=== PATIENT | male | born 1955 | race Caucasian/White ===

== ENCOUNTER → 2017-11-12 | Outpatient (CLI) | payer OTHER ==
[~2017-11-12] MED LIST: ASCA500 PO; ASPI-113 PO; CELE100C PO; CLC100 PO; HYDR-5688 PO; METO50TA16 PO; MULT-506 PO; ONDA4TAB7 SL; POLY335025 PO; TAMS0.4C59 PO; TRAM-10 PO
[2017-11-12 13:18] LABS: BLOOD UREA NITROGEN 18 mg/dl (7-18); CALCIUM 9.3 mg/dl (8.5-10.1); CARBON DIOXIDE 25 mmol/L (21-32); CREATININE 1.05 mg/dl (0.60-1.40); GLUCOSE 96 mg/dl (70-99); SODIUM 140 mmol/L (136-145)
== END | disposition home or self-care (01) ==
LOC: C.LABPBG 08:40
PROVIDERS: ATTEND Family Medicine
DX: I10 Essential (primary) hypertension (principal)

== ENCOUNTER 2025-09-08 05:44 | Inpatient (IN) ==
--- NOTE | 2025-08-15 10:40 | PAT Medication Instructions ---
Medication Instructions Date of Service August 15, 2025 Home Medications Medication Instructions Recorded acetaminophen 500 mg tablet 500 mg PO Q6H PRN pain #30 tabs 04/05/19 hydrocortisone 2.5 % topical cream 1 applic [place] DAILY PRN hemorrhoids 04/02/23 with perineal applicator #30 grams metoprolol tartrate 50 mg tablet 50 mg PO HS #90 tabs 05/12/23 ondansetron 8 mg disintegrating 8 mg PO Q8H PRN nausea and 06/16/24 tablet vomiting #90 tabs levofloxacin 500 mg tablet 500 mg PO DAILY PRN PROSTATE 10/22/24 ISSUES PER PT #90 tabs armodafinil 150 mg tablet (Nuvigil) 150 mg PO QAM PRN NEEDED PER PT 07/26/25 #30 tabs tramadol 50 mg tablet 50 mg PO BID PRN pain #60 tabs 07/26/25 acetaminophen 500 mg tablet 500 mg PO Q6H PRN pain cholecalciferol (vitamin D3) 125 mcg (5,000 unit) tablet (Vitamin D3) 125 mcg PO DAILY magnesium oxide 500 mg PO HS hydrocortisone 2.5 % topical cream with perineal applicator 1 applic [place] DAILY PRN hemorrhoids metoprolol tartrate 50 mg tablet 50 mg PO HS ondansetron 8 mg disintegrating tablet 8 mg PO Q8H PRN nausea and vomiting amlodipine 5 mg tablet 5 mg PO QAM amoxicillin 500 mg capsule 2,000 mg PO UD PRN dental care ascorbic acid (vitamin C) 500 mg capsule 2,000 mg PO DAILY aspirin 325 mg tablet 325 mg PO QAM cyanocobalamin (vitamin B-12) 1,000 mcg sublingual tablet 5,000 mcg sublingual DAILY fenofibrate 160 mg tablet 160 mg PO Q2D finasteride 5 mg tablet 5 mg PO QAM multivitamin 1 tab PO DAILY tamsulosin 0.4 mg capsule 0.8 mg PO QPM levofloxacin 500 mg tablet 500 mg PO DAILY PRN PROSTATE ISSUES PER PT lisinopril 10 mg tablet See Rx Instructions PO UD armodafinil 150 mg tablet (Nuvigil) 150 mg PO QAM PRN NEEDED PER PT tramadol 50 mg tablet 50 mg PO BID PRN pain docusate sodium 100 mg capsule 100 mg PO QPM PRN Constipation duloxetine 30 mg capsule,delayed release 40 mg PO QAM rosuvastatin 5 mg tablet 5 mg PO QAM Continue as directed amoxicillin 500 mg capsule 2,000 mg PO UD PRN dental care (if needed) levofloxacin 500 mg tablet 500 mg PO DAILY PRN PROSTATE ISSUES PER PT (if needed) ASK your prescriber and surgeon aspirin 325 mg tablet 325 mg PO QAM Do not take day before surgery or morning of surgery fenofibrate 160 mg tablet 160 mg PO Q2D DO NOT take the morning of surgery cholecalciferol (vitamin D3) 125 mcg (5,000 unit) tablet (Vitamin D3) 125 mcg PO DAILY ascorbic acid (vitamin C) 500 mg capsule 2,000 mg PO DAILY cyanocobalamin (vitamin B-12) 1,000 mcg sublingual tablet 5,000 mcg sublingual DAILY multivitamin 1 tab PO DAILY lisinopril 10 mg tablet See Rx Instructions PO UD armodafinil 150 mg tablet (Nuvigil) 150 mg PO QAM PRN NEEDED PER PT hydrocortisone 2.5 % topical cream with perineal applicator 1 applic [place] DAILY PRN hemorrhoids Take morning of surgery With a small sip of water, OTHERWISE NOTHING TO EAT OR DRINK AFTER MIDNIGHT: acetaminophen 500 mg tablet 500 mg PO Q6H PRN pain (if needed) ondansetron 8 mg disintegrating tablet 8 mg PO Q8H PRN nausea and vomiting (if needed) amlodipine 5 mg tablet 5 mg PO QAM finasteride 5 mg tablet 5 mg PO QAM tramadol 50 mg tablet 50 mg PO BID PRN pain (if needed) duloxetine 30 mg capsule,delayed release 40 mg PO QAM rosuvastatin 5 mg tablet 5 mg PO QAM Take evening before surgery acetaminophen 500 mg tablet 500 mg PO Q6H PRN pain (if needed) magnesium oxide 500 mg PO HS metoprolol tartrate 50 mg tablet 50 mg PO HS hydrocortisone 2.5 % topical cream with perineal applicator 1 applic [place] DAILY PRN hemorrhoids (if needed) ondansetron 8 mg disintegrating tablet 8 mg PO Q8H PRN nausea and vomiting (if needed) tamsulosin 0.4 mg capsule 0.8 mg PO QPM tramadol 50 mg tablet 50 mg PO BID PRN pain (if needed) docusate sodium 100 mg capsule 100 mg PO QPM PRN Constipation (if needed) Other Notes If you have any questions please call us at [phone] or [phone] or [phone] or [phone]
--- NOTE | 2025-08-19 10:14 | Anesthesiology Consultation ---
Date of Service August 19, 2025 Assessment & Plan (1) Encounter for pre-operative examination: - Check BSG DOS - Infectious disease screening: Per assessment on 08/19/25- No known recent infectious disease contacts or current infectious disease symptoms. - [facility] visit 05/02/25: "The patient is stable from a cardiovascular standpoint. He demonstrates excellent control of his blood pressure at home. Unfortunately, he is not tolerant with statin therapy. He was commended on his active lifestyle. We will continue with yearly visits. Highly complex medical issues are managed as discussed today. Plan 1. Continue current medications. 2. Continue active lifestyle. 3. Continue home blood pressure monitoring. 4. Lipid panel with primary care team. 5. Follow-up in 1 year (patient request)." - Ophthalmology visit 08/03/25: "Ischemic Optic Neuropathy OS. 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 No treatment can improve vision. No systemic risk factors for other inflammatory or infectious etiology. Recommend MRI Brain and sleep apnea evaluation (via PCP) to rule out rico and other risk factors. Gradual vision loss over last 3-4 w eeks. Patient had a CTA that showed 90% blockage in left carotid artery. He has an appointment with a vascular doctor early next week. Notes some shoulder weakness, had [facility] labs, which were negative.. Ischemic Optic neuropathy OD. Nonarteritic.. Resolved branch Retinal Artery Occlusion OD. No emboli on exam. Given the location (cilioretinal artery) coming off the optic nerve, more likely related to optic nerve edema/infarct (as opposed to embolic disease).. NS Cataract OU. Cataract not visually significant.. Systane 1gtt prn OU > Brain MRI done 08/14/25. - Cardiovascular surgeon visit 08/08/25: "Asked to evaluate this 69-year-old gentleman with an incidentally discovered left internal carotid artery stenosis. 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 Over the last month or so he has had progressive vision loss in the left eye. A CT arteriogram of the neck demonstrated a high-grade (greater than 80%) calcified stenosis of the left internal carotid artery at its origin and on this basis he is being referred for further evaluation. He really does not describe any intermittent loss of vision, it has really been very progressive and chronic. He has no history of a prior stroke or transient ischemic attack.." "He has a high-grade asymptomatic left internal carotid artery stenosis and is a suitable candidate for prophylactic carotid intervention. We discussed the options including medical management, carotid stenting, as well as carotid endarterectomy. He and his in particular would much rather pursue carotid endarterectomy. With this in mind, I will set him up for left carotid endarterectomy sometime in the next few weeks.." - Acceptable risk for given surgery pending evaluation DOS. Chart Review Chart Review: Patient seen in Pre Admission Testing Teaching & Discussion Pre-Anesthesia Teaching/Discussion Notes: Instructed NPO after midnight before surgery,except medications with 15 cc of water. Medication instructions provided according to the PAT guidelines. History Surgery Operation Date: 09/08/25 07:30 Proposed Procedures p Left Carotid Endarterectomy - Toby Maurice MD Height/Weight Height: 5 ft 8 in Weight: 78.3 kg Allergies Allergy/AdvReac Type Severity Reaction Status Date / Time No Known Allergies Allergy Verified 08/08/25 09:35 Medications Home Medications Medication Instructions Recorded Confirmed Last Taken acetaminophen 500 mg tablet 500 mg PO Q6H PRN pain #30 tabs 04/05/19 08/12/25 Unknown cholecalciferol (vitamin D3) 125 125 mcg PO DAILY 07/10/22 08/12/25 07/18/24 05:00 mcg (5,000 unit) tablet (Vitamin D3) magnesium oxide 500 mg PO HS 07/10/22 08/12/25 07/18/24 19:30 hydrocortisone 2.5 % topical cream 1 applic IN DAILY PRN hemorrhoids 04/02/23 08/12/25 Unknown with perineal applicator #30 grams metoprolol tartrate 50 mg tablet 50 mg PO HS #90 tabs 05/12/23 08/12/25 07/18/24 19:30 ondansetron 8 mg disintegrating 8 mg PO Q8H PRN nausea and 06/16/24 08/12/25 Unknown tablet vomiting #90 tabs amlodipine 5 mg tablet 5 mg PO QAM 07/05/24 08/12/25 07/19/24 04:30 amoxicillin 500 mg capsule 2,000 mg PO UD PRN dental care 07/05/24 08/12/25 Unknown ascorbic acid (vitamin C) 500 mg 2,000 mg PO DAILY 07/05/24 08/12/25 07/18/24 05:00 capsule aspirin 325 mg tablet 325 mg PO QAM 07/05/24 08/12/25 07/11/24 05:00 cyanocobalamin (vitamin B-12) 5,000 mcg sublingual DAILY 07/05/24 08/12/25 07/18/24 05:00 1,000 mcg sublingual tablet fenofibrate 160 mg tablet 160 mg PO Q2D 07/05/24 08/12/25 07/17/24 05:00 finasteride 5 mg tablet 5 mg PO QAM 07/05/24 08/12/25 07/18/24 05:00 multivitamin 1 tab PO DAILY 07/05/24 08/12/25 07/18/24 05:00 tamsulosin 0.4 mg capsule 0.8 mg PO QPM 07/05/24 08/12/25 07/18/24 19:30 levofloxacin 500 mg tablet 500 mg PO DAILY PRN PROSTATE 10/22/24 08/12/25 Unknown ISSUES PER PT #90 tabs lisinopril 10 mg tablet See Rx Instructions PO UD 01/24/25 08/12/25 Unknown armodafinil 150 mg tablet (Nuvigil) 150 mg PO QAM PRN NEEDED PER PT 07/26/25 08/12/25 Unknown #30 tabs tramadol 50 mg tablet 50 mg PO BID PRN pain #60 tabs 07/26/25 08/12/25 Unknown docusate sodium 100 mg capsule 100 mg PO QPM PRN Constipation 08/08/25 08/12/25 Unknown duloxetine 30 mg capsule,delayed 40 mg PO QAM 08/08/25 08/12/25 Unknown release rosuvastatin 5 mg tablet 5 mg PO QAM 08/12/25 08/12/25 Unknown Past Medical History Medical History Aortic valve sclerosis Follows with [facility] cardio BPH (benign prostatic hyperplasia) Cervical radiculopathy C6-C7 (chronic) RUE radiculopathy CLL (chronic lymphocytic leukemia) Stable currently, monitoring/no treatment Degenerative joint disease Depression Elevated PSA Hearing loss History of anemia Hx of renal calculi Hyperlipidemia Hypertension Ischemic optic neuropathy Legally blind right eye Mitral regurgitation Optic neuritis Left eye, Following with a specialist from [place] (comes to [place])- seen 07/2025 Osteoarthritis Prediabetes No meds PTSD (post-traumatic stress disorder) Stenosis of left internal carotid artery Neck CTA 08/01/25: Severe (90%) stenosis of the proximal left internal carotid artery due to calcified plaque. No additional stenoses within the major vessels of the neck. Exercise / Class Metabolic Activity II 4-5 Yardwork/Stairs/Walk up hill (one FS: No CP, no SOB) Past Family History Family History Father Diabetes Alcohol abuse Myocardial infarction, Onset Age: 75 Hypertension Mother Hypertension Other No family history of adverse response to anesthesia Denies family history of Ovarian cancer Prostate cancer Breast cancer Colorectal cancer Past Surgical History Surgical History H/O lithotripsy H/O right inguinal hernia repair (07/19/24) Robotic assisted Laparoscopic Right Inguinal Hernia Repair with Mesh History of hip surgery x3, r/t right hip wound infection History of open reduction and internal fixation (ORIF) procedure Right wrist, hardware removed (pins only) S/P hernia repair x2 (As infant, ~1984) Status post left hip replacement Status post right hip replacement Status post surgery Left wrist, radial artery repair Past Anesthesia History No Hx of Anesthesia Complications and No Family Hx of Anesthesia Complications History of PONV No Hx of PONV and No Hx of Motion Sickness Social History Smoking Status: Never smoker Do You Dip or Chew Tobacco: No Hx Alcohol Use: No (None in a few years) Hx Substance Use: No substance use type: does not use Review of Systems Patient denies chest pain, shortness of breath, dyspnea on exertion, fever, chills, cough, wheezing, palpitations. Physical Exam Vital Signs BP 135/63 P 56 TEMP 98.3 SP02 96%RA RESP 16 Physical Full cervical extension range of motion. Full TMJ range of motion. TMD > 3.5 finger breaths Mallampati Score II Dentition: intact Lungs: clear throughout to auscultation Cardiac: regular rate and rhythm, no murmurs noted Spine: normal Lab Results Anesthesia Preop Results Results Anesthesia Widget: WBC 9.84 K/ul (4.8-10.8) 08/19/25 Hgb 12.5 g/dL (14.0-18.0) L 11/21/25 Hct 39.2 % (42.0-52.0) L 08/19/25 Plt 263 K/uL (130-400) 08/19/25 Na 137 mmol/L (136-145) 07/26/25 K 3.9 mmol/L (3.5-5.1) 07/26/25 Cl 102 mmol/L (98-107) 07/26/25 CO2 26 mmol/L (21-32) 07/26/25 BUN 22 mg/dl (6-23) 07/26/25 Creat 1.11 mg/dl (0.6-1.4) 07/26/25 Glucose Level 136 mg/dl (70-99(Fasting)) H 07/26/25 TSH 0.446 uIu/ml (0.300-4.500) 07/26/25 Blood Type B Negative 08/19/25 Antibody Screen NEGATIVE 08/19/25 Testing Electrocardiogram Date: 08/19/25 SB with PACs at 54bpm. "Otherwise normal ECG" Other Testing Head CT Date: 08/01/25 IMPRESSION: No acute intracranial abnormality. Head CTA Date: 08/01/25 IMPRESSION: 1. There is no evidence of hemorrhage or mass effect noting angiographic phase technique. 2. Unremarkable CT angiogram of the brain. Neck CTA Date: 08/01/25 Findings: Visualized portions of the lung apices are unremarkable. There is no cervical lymphadenopathy. There are no cervical spine fractures. There is extensive calcified atherosclerotic plaque within the proximal left internal carotid artery which results in severe short segment stenosis. The patent portion of the vessel measures 1 mm. The more distal left internal carotid artery measures 4.6 mm. There is moderate plaque within the right carotid bifurcation without stenosis. The vertebral arteries are patent. There is no aneurysm or dissection within the neck. CTA of the head will be reported separately. IMPRESSION: Severe (90%) stenosis of the proximal left internal carotid artery due to calcified plaque. No additional stenoses within the major vessels of the neck. Brain MRI Date: 08/14/25 IMPRESSION: 1. No acute intracranial findings. 2. No intracranial mass or pathologic enhancement. 3. Scattered white matter T2 hyperintense foci which favor small vessel disease. No convincing MR evidence for demyelinating disease within the brain parenchyma.
[2025-09-08 06:05] LABS: Hematocrit (blood only) 39.7 % (42.0-52.0); Hemoglobin 13.0 g/dL (14.0-18.0); Mean Corpuscular Hemoglobin 28.8 pg (25.0-34.0); Mean Corpuscular Volume 88.0 fL (80.0-100.0); Platelet Count 300 K/uL (130-400); RDW Standard Deviation 47.4 fL (36.4-46.3); Red Blood Count 4.51 M/uL (4.70-6.10); White Blood Count 9.74 K/ul (4.8-10.8)
[2025-09-08] MEDS ORDERED: PROPOFOL IV EMULSION 10 MG/ML 20 ML VIAL IV ONE (06:20)
[2025-09-08] MEDS ORDERED: LIDOCAINE 2% 2 ML VIAL/AMP(20MG/ML) INFIL ONE (06:20)
[2025-09-08] MEDS ORDERED: ROCURONIUM BROMIDE 10 MG/ML 5 ML VIAL IV ONE (06:20)
[2025-09-08] MEDS: SODIUM CHLORIDE 0.9% 1,000 ML IV SCH (06:24)
[2025-09-08 06:25] LABS: Anion Gap 7.0 (3-11); Blood Urea Nitrogen 19.0 mg/dl (6-23); Calcium 9.3 mg/dl (8.6-10.3); Carbon Dioxide 28.0 mmol/L (21-32); Chloride 105.0 mmol/L (98-107); Creatinine Clr Calc Pharmacy 68.6 ml/min; Glucose 101.0 mg/dl (70-99(Fasting)); Potassium 4.5 mmol/L (3.5-5.1); Sodium 140.0 mmol/L (136-145)
[2025-09-08] MEDS ORDERED: PHENYLEPHRINE HCL 10 MG/ML VIAL ONE (06:25)
[2025-09-08] MEDS: LR 15ML/HR IV SCH (06:25)
[2025-09-08] MEDS ORDERED: HEPARIN SOD (PORCINE) 1000 UNIT/ML ONE (06:32)
[2025-09-08] MEDS ORDERED: LABETALOL HCL IV 5 MG/ML 20ML IV ONE (06:34)
[2025-09-08] MEDS ORDERED: NITROGLYCERIN/D5W 100 MCG/ML BTL ONE (06:37)
[2025-09-08] MEDS ORDERED: PROMETHAZINE HCL 6.25 MG in SODIUM CHLORIDE 0.9% 50 ML IV PRN (06:56)
[2025-09-08] MEDS ORDERED: ONDANSETRON INJ 2 MG/ML 2 ML VIAL IV PRN (06:56)
[2025-09-08] MEDS ORDERED: ATROPINE SULFATE 0.1 MG/ML 10ML SYR IV PRN (06:56)
[2025-09-08] MEDS ORDERED: FLUMAZENIL 0.1 MG/1 ML 10 ML VIAL IV PRN (06:56)
[2025-09-08] MEDS ORDERED: NALOXONE HCL 0.4 MG/1 ML VIAL/CARP IV PRN (06:56)
--- NOTE | 2025-09-08 07:40 | History & Physical Report ---
Date of Service September 08, 2025 Assessment & Plan (1) Stenosis of left internal carotid artery: Plan: Plan for left carotid endarterectomy today. Risks/goals/alternatives already discussed with patient who reaffirms his understanding of the seriousness of the situation and chooses to proceed. All questions answered. History of Present Illness Primary Care Provider: Azalea Bridges, DO Please see my note from 08/08/25. No significant change in his history from that time. Incidentally discovered high grade calcified left internal carotid artery stenosis. Remains asymptomatic. No interval history of fever, cough, GI symptoms or neurologic issues. Plan for left carotid endarterectomy today. Allergies Allergy/AdvReac Type Severity Reaction Status Date / Time No Known Allergies Allergy Verified 09/08/25 05:52 Home Medications Medication Instructions Recorded Confirmed Type acetaminophen 500 mg tablet 500 mg PO Q6H PRN pain #30 tabs 04/05/19 09/08/25 Rx cholecalciferol (vitamin D3) 125 125 mcg PO DAILY 07/10/22 09/08/25 History mcg (5,000 unit) tablet (Vitamin D3) magnesium oxide 500 mg PO HS 07/10/22 09/08/25 History hydrocortisone 2.5 % topical cream 1 applic [place] DAILY PRN hemorrhoids 04/02/23 09/08/25 Rx with perineal applicator #30 grams metoprolol tartrate 50 mg tablet 50 mg PO HS #90 tabs 05/12/23 09/08/25 Rx ondansetron 8 mg disintegrating 8 mg PO Q8H PRN nausea and 06/16/24 09/08/25 Rx tablet vomiting #90 tabs amlodipine 5 mg tablet 5 mg PO QAM 07/05/24 09/08/25 History amoxicillin 500 mg capsule 2,000 mg PO UD PRN dental care 07/05/24 09/08/25 History ascorbic acid (vitamin C) 500 mg 2,000 mg PO DAILY 07/05/24 09/08/25 History capsule aspirin 325 mg tablet 325 mg PO QAM 07/05/24 09/08/25 History cyanocobalamin (vitamin B-12) 5,000 mcg sublingual DAILY 07/05/24 09/08/25 History 1,000 mcg sublingual tablet fenofibrate 160 mg tablet 160 mg PO Q2D 07/05/24 09/08/25 History finasteride 5 mg tablet 5 mg PO QAM 07/05/24 09/08/25 History multivitamin 1 tab PO DAILY 07/05/24 09/08/25 History tamsulosin 0.4 mg capsule 0.8 mg PO QPM 07/05/24 09/08/25 History levofloxacin 500 mg tablet 500 mg PO DAILY PRN PROSTATE 10/22/24 09/08/25 Rx ISSUES PER PT #90 tabs lisinopril 10 mg tablet See Rx Instructions PO UD 01/24/25 09/08/25 History armodafinil 150 mg tablet (Nuvigil) 150 mg PO QAM PRN NEEDED PER PT 07/26/25 09/08/25 Rx #30 tabs tramadol 50 mg tablet 50 mg PO BID PRN pain #60 tabs 07/26/25 09/08/25 Rx docusate sodium 100 mg capsule 100 mg PO QPM PRN Constipation 08/08/25 09/08/25 History duloxetine 30 mg capsule,delayed 40 mg PO QAM 08/08/25 09/08/25 History release rosuvastatin 10 mg tablet 10 mg PO QAM #90 tabs 08/29/25 09/08/25 Rx Past Med/Surg History Problem List Anemia PTSD (post-traumatic stress disorder) Osteoarthritis, chronic Dyslipidemia Hx Depression Aortic valve sclerosis Follows with [facility] BPH (benign prostatic hyperplasia) HTN (hypertension) Prediabetes CLL (chronic lymphocytic leukemia) Hearing loss Degenerative joint disease (DJD) of hip Erectile dysfunction Medical History Encounter for pre-operative examination Stenosis of left internal carotid artery Neck CTA 08/01/25: Severe (90%) stenosis of the proximal left internal carotid artery due to calcified plaque. No additional stenoses within the major vessels of the neck. Mitral regurgitation Optic neuritis Left eye, Following with a specialist from [place] (comes to [place])- seen 07/2025 Hearing loss Degenerative joint disease Depression PTSD (post-traumatic stress disorder) Prediabetes No meds Osteoarthritis Hypertension Hyperlipidemia BPH (benign prostatic hyperplasia) Cervical radiculopathy C6-C7 (chronic) RUE radiculopathy CLL (chronic lymphocytic leukemia) Stable currently, monitoring/no treatment Aortic valve sclerosis Follows with [facility] History of anemia Elevated PSA Ischemic optic neuropathy Legally blind right eye Hx of renal calculi Surgical History H/O right inguinal hernia repair (07/19/24) Robotic assisted Laparoscopic Right Inguinal Hernia Repair with Mesh History of open reduction and internal fixation (ORIF) procedure Right wrist, hardware removed (pins only) History of hip surgery x3, r/t right hip wound infection Status post surgery Left wrist, radial artery repair Status post left hip replacement S/P hernia repair x2 (As infant, ~1984) H/O lithotripsy Status post right hip replacement Family History Father Diabetes Alcohol abuse Myocardial infarction, Onset Age: 75 Hypertension Mother Hypertension Other No family history of adverse response to anesthesia Denies family history of Ovarian cancer Prostate cancer Breast cancer Colorectal cancer Social History Smoking Status: Never smoker Second Hand Exposure: Yes (hx growing up); Do You Dip or Chew Tobacco: No; Tobacco Cessation Education Requested by Patient: No Hx Alcohol Use: No (None in a few years) Hx Substance Use: No Preferred Language: Gu[place]an Communication Ability: Effective Visual Impairment: No Limitations Hearing Ability: Hard of Hearing Wire Inspector Required: No Beliefs That Will Affect Care: None marital status: Current Living Situation: Spouse current occupational status: employed current occupation: [employer] Other Information That Helps Us Care for You: No Feels Safe at Home: Yes Safety Concerns: Feels Safe At This Time Childhood Exposure to Second-Hand Smoke: No Diet: regular Diet Comment: regular caffeine: Yes during the past year weight has: remained stable Dental Care, Regularly: Yes Physical Activity Frequency: Daily Seatbelt Use: always Sunscreen Use: Yes Assistive Devices: Glasses Assistive Devices Comment: reading glasses prn Physical Exam Physical Exam: Neck soft and supple. No neurologic deficits. Lungs clear Heart regular rate and rhythm. Results & Data Vital Signs (Past 12 Hours) Vital Signs Temp Pulse Resp BP Pulse Ox O2 Del Method 09/08/25 06:13 36.8 C 60 18 150/70 H 96 Room Air Code Status & VTE Plan VTE Prophylaxis Plan VTE Prophylaxis will be ordered: Yes PG Care Time/CCT Total # of Minutes Spent Total Time Spent with Patient: Total time spent is greater than 50% in coordination of care (as documented) at patient's floor/unit and/or counseling patient: Coding [place] [address] INT INP/OBS CARE 2/55MIN Patient Type Established Medical Decision Making Low Complexity Diagnoses Stenosis of left internal carotid artery I65.22
[2025-09-08] MEDS ORDERED: MIDAZOLAM HCL 1 MG/ML 2ML VIAL ONE (07:48)
[2025-09-08] MEDS ORDERED: ETOMIDATE 2 MG/ML 20 ML VIAL IV ONE (08:06)
[2025-09-08] MEDS ORDERED: ONDANSETRON INJ 2 MG/ML 2 ML VIAL ONE (08:41)
[2025-09-08] MEDS ORDERED: DEXAMETHASONE SOD INJ 4 MG/ML VIAL ONE (08:41)
[2025-09-08] MEDS ORDERED: VASOPRESSIN 20 UNIT/ML VIAL ONE (09:16)
[2025-09-08] MEDS ORDERED: ePHEDrine sulfate 50 MG/5 ML SYR ONE (09:30)
[2025-09-08] MEDS ORDERED: GLYCOPYRROLATE 0.2 MG/ML VIAL ONE (09:33)
[2025-09-08] MEDS ORDERED: SUGAMMADEX SODIUM 200 MG/2 ML VIAL IV ONE (10:14)
[2025-09-08] MEDS: GELATIN SPONGE SZ 100 ONE (10:32)
[2025-09-08] MEDS: ceFAZolin 330 MG/ML 1 GM VIAL ONE (10:32)
[2025-09-08] MEDS: BUPIVACAINE 0.25% PF 30 ML VIAL ONE (10:33)
[2025-09-08] MEDS: OPTIRAY 350 50ml Bottle INJ ONE (10:33)
[2025-09-08] MEDS: LIDOCAINE 1% LOCAL 20 ML VIAL ONE (10:33)
[2025-09-08] MEDS: THROMBIN FOR SOLN 20000 UNIT KIT ONE (10:33)
[2025-09-08] MEDS: HEPARIN (PORCINE) 1000 UNIT/ML 10 ML (CATH LAB USE ONLY) ONE (10:34)
--- NOTE | 2025-09-08 10:51 | Post Operative Brief Note ---
Immediate Post Op Note Date of Surgery September 08, 2025 Pre & Post Diagnosis Operation Date: 09/08/25 07:15 Pre-Op Diagnosis: Stenosis of Left Internal Carotid Artery Post-Op Diagnosis: Stenosis of Left Internal Carotid Artery I identified the patient and participated in the time-out.: Yes Procedure Operation Date: 09/08/25 07:15 Actual Procedures p Left Carotid Endarterectomy(Left) - Toby Maurice MD Surgeon Toby Maurice MD Bowling Alley Refinisher Neli Silva PA-C Estimated Blood Loss 50 Findings Consistent with Post-Op Diagnosis Specimens left carotid plaque Drains Alberto Catheter and Mikal-Monsivais Drain (15 fr) Anesthesia Type General Complications none Disposition Accompanied Patient To Recovery: Yes Disposition: Recovery Room
[2025-09-08 11:39] LABS: Hematocrit (blood only) 34.8 % (42.0-52.0); Hemoglobin 11.3 g/dL (14.0-18.0); Mean Corpuscular Hemoglobin 28.2 pg (25.0-34.0); Mean Corpuscular Volume 86.8 fL (80.0-100.0); Platelet Count 238 K/uL (130-400); RDW Standard Deviation 47.0 fL (36.4-46.3); Red Blood Count 4.01 M/uL (4.70-6.10); White Blood Count 10.62 K/ul (4.8-10.8)
--- NOTE | 2025-09-08 11:43 | Operative Report ---
PG Post Operative Report Pre & Post Diagnosis Operation Date: 09/08/25 07:15 Pre-Op Diagnosis: Stenosis of Left Internal Carotid Artery Post-Op Diagnosis: Stenosis of Left Internal Carotid Artery I identified the patient and participated in the time-out.: Yes Procedure Operation Date: 09/08/25 07:15 Actual Procedures p Left Carotid Endarterectomy(Left) - Toby Maurice MD Surgeon Toby Maurice MD Chip Bin Operator Neli Silva PA-C Estimated Blood Loss 50 Findings Consistent with Post-Op Diagnosis Specimens left carotid plaque Drains 15 round LUIS Anesthesia Type General Complications none Disposition Accompanied Patient To Recovery: Yes Disposition: Recovery Room Indications 69-year-old gentleman with high-grade asymptomatic left internal carotid artery stenosis. Brought to the operating room for repair. Risk goals and alternatives were discussed with the patient understood and gave consent to proceed. Description of Procedure A timeout was performed and the patient was identified and the procedure verified. General tracheal anesthesia was induced without incident. Preoperative antibiotics were administered within 1 hour of incision time. Neuromonitoring devices were placed and suitable baseline tracings were obtained. The left neck was prepped and draped in the usual sterile fashion. After infiltrating the skin with a 50-50 mixture of quarter percent Marcaine and 1% lidocaine, a 10 cm incision paralleling the anterior border of the sternocleidomastoid muscle was created. The platysma was divided with electrocautery. There was a large branch off of the internal jugular vein below the facial vein. This was divided and ligated with 2-0 silk ties. The vagus nerve was identified within the carotid sheath and protected. The patient was systemically anticoagulated with heparin to achieve a therapeutic activated clotting time. The facial vein was ligated and divided between 2-0 silk ties and mobilization of the common carotid artery was performed to an area without significant palpable disease. It was encircled with a Velasquez tourniquet. The external carotid and superior thyroid arteries were separately controlled. The internal carotid artery was dissected free to an area without significant palpable disease after identifying the hypoglossal nerve. The patient maintaining good oxygenation and hemodynamics, the internal/external and common carotid arteries were clamped. There was an additional posterior branch off the external carotid which was controlled with a clamp. The endarterectomy plane was identified and a bulky calcified plaque was removed from the origin of the internal carotid artery. The distal endpoint was feathered but in some points had to be trimmed and was tacked down with 7-0 Prolene. The proximal endpoint was obtained sharply. There was not a lot of disease into the external carotid artery so the plaque was trimmed flush with the origin here with a good endpoint. Copious irrigation of the lumen was performed and all remaining bits of debris were removed. A Dacron patch was fashioned to fit and sewn onto the carotid arteriotomy using running 6-0 Prolene. Prior to completion, backbleeding for bleeding and flushing maneuvers were performed and the patch closure was then completed tested secured and hemostatic. Flow was restored first to the external and into the internal carotid artery. The patient tolerated this well. Throughout the entire clamp time, neuromonitoring tracings were stable and so no shunt was used. Continuous-wave Doppler interrogation of all 3 vessels revealed appropriate waveforms. The patch was punctured with a 21-gauge butterfly and a completion angiogram was performed showing suitable endpoints and brisk flow up into the middle cerebral artery. The puncture site was repaired with 6-0 Prolene. The wound was made hemostatic. A 15 round Mikal-Monsivais drain was brought out through a separate stab incision and secured to the skin. The platysma was closed with interrupted Vicryl and the skin was closed with a running Monocryl suture. Dermabond was applied. A dry dressing was applied and the patient was awakened and extubated in the operating room moving all 4 extremities to command with the tongue in the midline. There were no immediate complications and the patient appeared to tolerate the procedure well. I attest to the content of the Intraoperative Record and any orders documented therein. Any exceptions are noted below.
--- NOTE | 2025-09-08 11:53 | Anesthesiology Progress Note ---
Date of Service September 08, 2025 Anesthesia Post Procedure Vital Signs Vital Signs: Temp Pulse Resp BP BP Pulse Ox O2 Del Method 09/08/25 11:50 36.6 C 71 15 93/41 L 93/52 L 94 Room Air 09/08/25 11:35 72 17 98/43 L 100/53 L 94 Room Air 09/08/25 11:25 81 16 109/59 L 102/32 L 99 Oxymask 09/08/25 11:15 84 15 108/65 105/59 L 100 Oxymask 09/08/25 11:08 36.1 C L 84 15 128/66 100 Oxymask 09/08/25 06:13 36.8 C 60 18 150/70 H 96 Room Air O2 Flow Rate 09/08/25 11:50 09/08/25 11:35 09/08/25 11:25 6 09/08/25 11:15 6 09/08/25 11:08 6 09/08/25 06:13 Transfer of Care Handoff Completed per policy Notes Mental Status: alert / awake / arousable Patient Amnestic to Procedure: Yes Nausea / Vomiting: adequately controlled Pain: adequately controlled Airway Patency, RR, SpO2: stable & adequate BP & HR: stable & adequate Hydration State: stable & adequate Anesthetic Complications: no major complications apparent
[2025-09-08 12:04] LABS: Anion Gap 7.0 (3-11); Blood Urea Nitrogen 18.0 mg/dl (6-23); Calcium 8.3 mg/dl (8.6-10.3); Carbon Dioxide 25.0 mmol/L (21-32); Chloride 109.0 mmol/L (98-107); Creatinine Clr Calc Pharmacy 80.1 ml/min; Glucose 139.0 mg/dl (70-99(Fasting)); Potassium 3.6 mmol/L (3.5-5.1); Sodium 141.0 mmol/L (136-145)
[2025-09-08 12:26] LABS: Immature Granulocytes # (auto) 0.03 K/uL (0.01-0.20); Immature Granulocytes % (auto) 0.3 %
--- NOTE | 2025-09-08 15:36 | Critical Care Consultation ---
Date of Consultation September 08, 2025 Assessment & Plan (1) S/P carotid endarterectomy: Postop day 0 status post uneventful left carotid endarterectomy. Continue rosuvastatin and aspirin as per vascular surgical team. Continue frequent neurovascular checks. Systolic blood pressure goals per vascular surgery. (2) Dyslipidemia: (3) Aortic valve sclerosis: Plan ICU will continue to monitor while he remains inpatient History of Present Illness Reason for Consultation: Monitor in ICU status post endarterectomy. Attending Physician: Toby Maurice MD History of Present Illness 69-year-old male who underwent an elective endarterectomy who had an incidentally discovered left internal carotid artery stenosis of a high degree. He underwent an uneventful left carotid endarterectomy and is doing well. No major complaints at this time. Allergies Allergy/AdvReac Type Severity Reaction Status Date / Time No Known Allergies Allergy Verified 09/08/25 05:52 Home Medications Medication Instructions Recorded Confirmed Type acetaminophen 500 mg tablet 500 mg PO Q6H PRN pain #30 tabs 04/05/19 09/08/25 Rx cholecalciferol (vitamin D3) 125 125 mcg PO DAILY 07/10/22 09/08/25 History mcg (5,000 unit) tablet (Vitamin D3) magnesium oxide 500 mg PO HS 07/10/22 09/08/25 History hydrocortisone 2.5 % topical cream 1 applic AL DAILY PRN hemorrhoids 04/02/23 09/08/25 Rx with perineal applicator #30 grams metoprolol tartrate 50 mg tablet 50 mg PO HS #90 tabs 05/12/23 09/08/25 Rx ondansetron 8 mg disintegrating 8 mg PO Q8H PRN nausea and 06/16/24 09/08/25 Rx tablet vomiting #90 tabs amlodipine 5 mg tablet 5 mg PO QAM 07/05/24 09/08/25 History amoxicillin 500 mg capsule 2,000 mg PO UD PRN dental care 07/05/24 09/08/25 History ascorbic acid (vitamin C) 500 mg 2,000 mg PO DAILY 07/05/24 09/08/25 History capsule aspirin 325 mg tablet 325 mg PO QAM 07/05/24 09/08/25 History cyanocobalamin (vitamin B-12) 5,000 mcg sublingual DAILY 07/05/24 09/08/25 History 1,000 mcg sublingual tablet fenofibrate 160 mg tablet 160 mg PO Q2D 07/05/24 09/08/25 History finasteride 5 mg tablet 5 mg PO QAM 07/05/24 09/08/25 History multivitamin 1 tab PO DAILY 07/05/24 09/08/25 History tamsulosin 0.4 mg capsule 0.8 mg PO QPM 07/05/24 09/08/25 History levofloxacin 500 mg tablet 500 mg PO DAILY PRN PROSTATE 10/22/24 09/08/25 Rx ISSUES PER PT #90 tabs lisinopril 10 mg tablet See Rx Instructions PO UD 01/24/25 09/08/25 History armodafinil 150 mg tablet (Nuvigil) 150 mg PO QAM PRN NEEDED PER PT 07/26/25 09/08/25 Rx #30 tabs tramadol 50 mg tablet 50 mg PO BID PRN pain #60 tabs 07/26/25 09/08/25 Rx docusate sodium 100 mg capsule 100 mg PO QPM PRN Constipation 08/08/25 09/08/25 History duloxetine 30 mg capsule,delayed 40 mg PO QAM 08/08/25 09/08/25 History release rosuvastatin 10 mg tablet 10 mg PO QAM #90 tabs 08/29/25 09/08/25 Rx Patient History Medical History Encounter for pre-operative examination Stenosis of left internal carotid artery Neck CTA 08/01/25: Severe (90%) stenosis of the proximal left internal carotid artery due to calcified plaque. No additional stenoses within the major vessels of the neck. 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 Hx of renal calculi Surgical History (Updated 09/08/25 @ 15:34 by Mark Anthony Tavarez MD) H/O right inguinal hernia repair (07/19/24) Robotic assisted Laparoscopic Right Inguinal Hernia Repair with Mesh History of open reduction and internal fixation (ORIF) procedure Right wrist, hardware removed (pins only) History of hip surgery x3, r/t right hip wound infection Status post surgery Left wrist, radial artery repair Status post left hip replacement S/P hernia repair x2 (As , ~1984) H/O lithotripsy Status post right hip replacement Family History Father Diabetes Alcohol abuse Myocardial infarction, Onset Age: 75 Hypertension Mother Hypertension Other No family history of adverse response to anesthesia Denies family history of Ovarian cancer Prostate cancer Breast cancer Colorectal cancer Social History Smoking Status: Never smoker Second Hand Exposure: Yes (hx growing up); Do You Dip or Chew Tobacco: No; Tobacco Cessation Education Requested by Patient: No Hx Alcohol Use: No (None in a few years) Hx Substance Use: No Preferred Language: Tajik Communication Ability: Effective Visual Impairment: No Limitations Hearing Ability: Hard of Hearing Vp Ancillary Required: No Beliefs That Will Affect Care: None marital status: Current Living Situation: Spouse current occupational status: employed current occupation: [employer] Other Information That Helps Us Care for You: No Feels Safe at Home: Yes Safety Concerns: Feels Safe At This Time Childhood Exposure to Second-Hand Smoke: No Diet: regular Diet Comment: regular caffeine: Yes during the past year weight has: remained stable Dental Care, Regularly: Yes Physical Activity Frequency: Daily Seatbelt Use: always Sunscreen Use: Yes Assistive Devices: Glasses Assistive Devices Comment: reading glasses prn Review of Systems Review of Systems: All systems reviewed & are unremarkable except as noted in HPI & below Physical Exam Constitutional: well developed and well nourished; no acute distress ENMT: Ears: no external ear abnormality Nose: no external nose abnormality Neck: normal visual inspection Respiratory: normal respiratory effort, lungs clear to auscultation Cardiovascular: Rate/Rhythm: regular rate and regular rhythm Heart Sounds: normal S1, normal S2 and + murmur Vessels: normal peripheral pulses Extremities: no edema Musculoskeletal: Gait: normal gait Psychiatric: A+Ox3, euthymic affect Results & Data Results & Data Vital Signs (Past 12 Hours) Vital Signs Temp Pulse Pulse Resp BP BP BP 12/11/25 15:00 61 14 09/08/25 15:00 94/47 L 09/08/25 14:30 63 11 L 09/08/25 14:00 61 15 09/08/25 14:00 90/44 L 09/08/25 13:30 66 11 L 09/08/25 13:00 89/48 L 09/08/25 13:00 89/48 L 09/08/25 13:00 65 12 09/08/25 12:53 36.7 C 09/08/25 12:45 67 5 L 09/08/25 12:30 75 14 09/08/25 12:15 76 16 09/08/25 12:12 36.6 C 09/08/25 12:00 76 10 L 09/08/25 12:00 104/55 L 09/08/25 11:57 80 13 09/08/25 11:57 94/49 L 09/08/25 11:53 36.6 C 09/08/25 11:50 36.6 C 71 15 93/41 L 93/52 L 09/08/25 11:35 72 17 98/43 L 100/53 L 09/08/25 11:25 81 16 109/59 L 102/32 L 09/08/25 11:15 84 15 108/65 105/59 L 09/08/25 11:08 36.1 C L 84 15 128/66 09/08/25 06:13 36.8 C 60 18 150/70 H Pulse Ox O2 Del Method O2 Flow Rate 09/08/25 15:00 96 09/08/25 15:00 09/08/25 14:30 95 09/08/25 14:00 92 09/08/25 14:00 09/08/25 13:30 94 09/08/25 13:00 09/08/25 13:00 09/08/25 13:00 09/08/25 12:53 09/08/25 12:45 91 09/08/25 12:30 94 09/08/25 12:15 95 09/08/25 12:12 09/08/25 12:00 98 09/08/25 12:00 09/08/25 11:57 93 09/08/25 11:57 09/08/25 11:53 09/08/25 11:50 94 Room Air 09/08/25 11:35 94 Room Air 09/08/25 11:25 99 Oxymask 6 09/08/25 11:15 100 Oxymask 6 09/08/25 11:08 100 Oxymask 6 09/08/25 06:13 96 Room Air Coding Level of Care Code 79686 IN/OBS CONSULT LVL 2,35M Diagnoses S/P carotid endarterectomy Z98.890 Dyslipidemia E78.5 Aortic valve sclerosis I35.8
--- NOTE | 2025-09-08 16:32 | Vascular Surgery Progress Note ---
Date of Service September 08, 2025 Assessment & Plan (1) S/P carotid endarterectomy: Plan: s/p left CEA earlier today. Doing well. Routine postop care. Appreciate ICU team assistance. Family updated. Admission and Anticipated Discharge Date Admission Date: September 08, 2025 Subjective Postop check s/p left carotid endarterectomy Awake, alert, comfortable. Physical Exam Physical Exam: BP110/70. P80. Neck incision clean/dry. Minimal LUIS output. No hematoma Tongue midline (+) ST pulse No neurologic deficits. Results & Data Vital Signs (Past 12 Hours) Vital Signs Temp Pulse Pulse Resp BP BP BP 09/08/25 15:00 61 14 09/08/25 15:00 94/47 L 09/08/25 14:30 63 11 L 09/08/25 14:00 61 15 09/08/25 14:00 90/44 L 09/08/25 13:30 66 11 L 09/08/25 13:00 89/48 L 09/08/25 13:00 89/48 L 09/08/25 13:00 65 12 09/08/25 12:53 36.7 C 09/08/25 12:45 67 5 L 09/08/25 12:30 75 14 09/08/25 12:15 76 16 09/08/25 12:12 36.6 C 09/08/25 12:00 76 10 L 09/08/25 12:00 104/55 L 09/08/25 11:57 80 13 09/08/25 11:57 94/49 L 09/08/25 11:53 36.6 C 09/08/25 11:50 36.6 C 71 15 93/41 L 93/52 L 09/08/25 11:35 72 17 98/43 L 100/53 L 09/08/25 11:25 81 16 109/59 L 102/32 L 09/08/25 11:15 84 15 108/65 105/59 L 09/08/25 11:08 36.1 C L 84 15 128/66 09/08/25 06:13 36.8 C 60 18 150/70 H Pulse Ox O2 Del Method O2 Flow Rate 09/08/25 15:00 96 09/08/25 15:00 09/08/25 14:30 95 09/08/25 14:00 92 09/08/25 14:00 12/11/25 13:30 94 09/08/25 13:00 09/08/25 13:00 09/08/25 13:00 09/08/25 12:53 09/08/25 12:45 91 09/08/25 12:30 94 09/08/25 12:15 95 09/08/25 12:12 09/08/25 12:00 98 09/08/25 12:00 09/08/25 11:57 93 09/08/25 11:57 09/08/25 11:53 09/08/25 11:50 94 Room Air 09/08/25 11:35 94 Room Air 09/08/25 11:25 99 Oxymask 6 09/08/25 11:15 100 Oxymask 6 09/08/25 11:08 100 Oxymask 6 09/08/25 06:13 96 Room Air PG Care Time/CCT Total # of Minutes Spent Total Time Spent with Patient: Total time spent is greater than 50% in coordination of care (as documented) at patient's floor/unit and/or counseling patient:
[2025-09-09] MEDS: ACETAMINOPHEN 325 MG TAB PO PRN (02:39)
[2025-09-09 05:22] LABS: Hematocrit (blood only) 31.2 % (42.0-52.0); Hemoglobin 10.2 g/dL (14.0-18.0); Immature Granulocytes # (auto) 0.05 K/uL (0.01-0.20); Immature Granulocytes % (auto) 0.4 %; Mean Corpuscular Hemoglobin 28.7 pg (25.0-34.0); Mean Corpuscular Volume 87.6 fL (80.0-100.0); Platelet Count 241 K/uL (130-400); RDW Standard Deviation 47.9 fL (36.4-46.3); Red Blood Count 3.56 M/uL (4.70-6.10); White Blood Count 11.86 K/ul (4.8-10.8)
[2025-09-09 05:41] LABS: Anion Gap 7.0 (3-11); Blood Urea Nitrogen 16.0 mg/dl (6-23); Calcium 8.3 mg/dl (8.6-10.3); Carbon Dioxide 24.0 mmol/L (21-32); Chloride 107.0 mmol/L (98-107); Creatinine Clr Calc Pharmacy 86.6 ml/min; Glucose 100.0 mg/dl (70-99(Fasting)); Potassium 3.9 mmol/L (3.5-5.1); Sodium 138.0 mmol/L (136-145)
--- NOTE | 2025-09-09 08:01 | Vascular Surgery Progress Note ---
Date of Service September 09, 2025 Assessment & Plan (1) S/P carotid endarterectomy: Plan: doing well s/p L CEA. LUIS drain removed. Plan - remove Alberto, arterial line. Advance diet. If able to urinate and tolerate po intake then can be discharged later today. Followup in 1 month (we will arrange). Discharge plans reviewed. Admission and Anticipated Discharge Date Admission Date: September 08, 2025 Subjective No reported problems. Sitting up in bed. Physical Exam Physical Exam: Awake, alert, comfortable. No neurologic deficits. Tongue midline Incision clean, dry. Minimal LUIS output. Results & Data Vital Signs (Past 12 Hours) Vital Signs Temp Pulse Resp BP Pulse Ox O2 Del Method 09/09/25 07:33 64 24 98 09/09/25 07:33 135/58 L 09/09/25 07:33 135/58 L 09/09/25 07:33 135/58 L 09/09/25 07:33 135/58 L 09/09/25 07:30 58 L 17 100 09/09/25 07:00 125/53 L 09/09/25 07:00 125/53 L 09/09/25 07:00 59 L 21 99 Room Air 09/09/25 06:00 119/50 L 09/09/25 06:00 119/50 L 09/09/25 06:00 119/50 L 09/09/25 06:00 119/50 L 09/09/25 06:00 119/50 L 09/09/25 06:00 119/50 L 09/09/25 06:00 119/50 L 09/09/25 06:00 119/50 L 09/09/25 06:00 119/50 L 09/09/25 06:00 57 L 17 97 09/09/25 05:45 53 L 13 96 09/09/25 05:30 64 16 98 09/09/25 05:15 56 L 14 94 09/09/25 05:00 103/54 L 09/09/25 05:00 103/54 L 09/09/25 05:00 103/54 L 09/09/25 05:00 103/54 L 09/09/25 05:00 103/54 L 09/09/25 05:00 103/54 L 09/09/25 05:00 103/54 L 09/09/25 05:00 103/54 L 09/09/25 05:00 103/54 L 09/09/25 05:00 59 L 15 94 09/09/25 04:45 60 17 97 09/09/25 04:30 59 L 14 96 09/09/25 04:15 59 L 14 97 09/09/25 04:00 66 17 97 09/09/25 04:00 127/68 09/09/25 04:00 127/68 09/09/25 04:00 127/68 09/09/25 04:00 127/68 09/09/25 04:00 127/68 09/09/25 04:00 61 09/09/25 03:45 56 L 18 96 09/09/25 03:30 58 L 16 95 09/09/25 03:15 64 19 96 09/09/25 03:00 56 L 15 96 09/09/25 03:00 103/51 L 09/09/25 03:00 103/51 L 09/09/25 03:00 103/51 L 09/09/25 03:00 103/51 L 09/09/25 03:00 103/51 L 09/09/25 03:00 36.7 C 09/09/25 02:45 55 L 14 97 09/09/25 02:30 67 13 98 09/09/25 02:15 57 L 19 97 09/09/25 02:00 55 L 15 95 09/09/25 02:00 105/46 L 09/09/25 02:00 105/46 L 09/09/25 02:00 105/46 L 09/09/25 02:00 105/46 L 09/09/25 02:00 105/46 L 09/09/25 01:45 63 15 95 09/09/25 01:30 60 16 96 09/09/25 01:15 60 16 95 09/09/25 01:00 58 L 14 09/09/25 01:00 103/51 L 09/09/25 01:00 103/51 L 09/09/25 01:00 103/51 L 09/09/25 01:00 103/51 L 09/09/25 01:00 103/51 L 09/09/25 00:45 63 10 L 97 09/09/25 00:30 61 19 92 09/09/25 00:15 61 12 95 09/09/25 00:00 63 17 94 09/09/25 00:00 106/50 L 09/09/25 00:00 106/50 L 09/09/25 00:00 106/50 L 09/09/25 00:00 106/50 L 09/09/25 00:00 106/50 L 09/09/25 00:00 62 117/47 L 09/09/25 00:00 62 09/08/25 23:45 60 14 96 09/08/25 23:30 60 16 95 09/08/25 23:15 63 13 96 09/08/25 23:02 36.5 C 09/08/25 23:00 65 18 95 09/08/25 23:00 101/51 L 09/08/25 23:00 101/51 L 09/08/25 23:00 101/51 L 09/08/25 23:00 101/51 L 09/08/25 23:00 101/51 L 09/08/25 22:45 64 15 95 09/08/25 22:30 65 16 96 09/08/25 22:15 63 13 95 09/08/25 22:00 66 14 94 09/08/25 22:00 103/49 L 09/08/25 22:00 103/49 L 09/08/25 22:00 103/49 L 09/08/25 22:00 103/49 L 09/08/25 22:00 103/49 L 09/08/25 21:46 67 122/49 L 09/08/25 21:45 64 22 92 09/08/25 21:30 66 13 92 09/08/25 21:15 70 14 91 09/08/25 21:00 66 13 93 09/08/25 21:00 101/46 L 09/08/25 21:00 101/46 L 09/08/25 21:00 101/46 L 09/08/25 21:00 101/46 L 09/08/25 21:00 101/46 L 09/08/25 20:45 65 17 93 09/08/25 20:30 63 13 96 09/08/25 20:15 65 13 94 09/08/25 20:00 65 14 93 09/08/25 20:00 94/50 L 09/08/25 20:00 94/50 L 09/08/25 20:00 94/50 L 09/08/25 20:00 94/50 L 09/08/25 20:00 94/50 L PG Care Time/CCT Total # of Minutes Spent Total Time Spent with Patient: Total time spent is greater than 50% in coordination of care (as documented) at patient's floor/unit and/or counseling patient:
[2025-09-09 08:04] VITALS: TEMP 98.4
[2025-09-09] MEDS: ASPIRIN 325 MG ECTAB PO SCH (08:24)
[2025-09-09] MEDS: ROSUVASTATIN CALCIUM 10 MG TAB PO SCH (08:24)
[2025-09-09] MEDS: FINASTERIDE 5 MG TAB PO SCH (08:24)
[2025-09-09 10:21] VITALS: O2SAT 100
--- NOTE | 2025-09-09 10:29 | Critical Care Progress Note ---
Date of Service September 09, 2025 Assessment & Plan (1) S/P carotid endarterectomy: Plan: Postop day 1 status post uneventful left carotid endarterectomy. Continue rosuvastatin and aspirin as per vascular surgical team. Continue frequent neurovascular checks. Systolic blood pressure goals per vascular surgery. Patient can start home BP meds upon discharge. (2) Dyslipidemia: Plan: Cont rosuvastatin (3) Aortic valve sclerosis: Plan Patient stable this am. Plan for discharge home with vascular surgery. Admission and Anticipated Discharge Date Admission Date: September 08, 2025 Subjective Patient neuro intact this am. Hemodynamically stable. Plan per vascular surgery to discharge home this am. Review of Systems Review of Systems: All systems reviewed & are unremarkable except as noted in HPI & below Physical Exam Physical Exam: VITALS: Reviewed. WEIGHT/BMI reviewed. GEN: Pleasant, well-developed, NAD. PSYCH: Good Judgment. AOx3. Normal memory, mood, and affect. HEENT -Head: NC/AT; -Eyes: PERRL, EOMI. No discharge or redn ess; -Ears: External ears are normal. -Nose: Normal nares. NECK: Supple, with no masses. Left neck CEA site with edges approximated and no hematoma or drainage. CV: RRR, no m/r/g. LUNGS: CTAB, no w/r/c. ABD: N/A : N/A SKIN: Warm, well perfused. No skin rashes or abnormal lesions. MSK: No deformities, Normal gait. EXT: No clubbing, cyanosis, or edema. NEURO: Normal muscle strength and tone. No focal deficits. Results & Data Results & Data Vital Signs (Past 12 Hours) Vital Signs Temp Pulse Pulse Resp BP BP Pulse Ox 09/09/25 10:00 62 20 100 09/09/25 10:00 115/55 L 09/09/25 10:00 115/55 L 09/09/25 10:00 115/55 L 09/09/25 10:00 115/55 L 09/09/25 10:00 115/55 L 09/09/25 09:41 36.9 C 65 17 128/56 L 98 09/09/25 09:31 128/56 L 09/09/25 09:31 128/56 L 09/09/25 09:31 128/56 L 09/09/25 09:31 128/56 L 09/09/25 09:31 128/56 L 09/09/25 09:30 58 L 18 97 09/09/25 09:00 116/65 09/09/25 09:00 116/65 09/09/25 09:00 116/65 09/09/25 09:00 116/65 09/09/25 09:00 116/65 09/09/25 09:00 66 18 99 09/09/25 08:30 59 L 22 100 09/09/25 08:30 106/55 L 09/09/25 08:30 106/55 L 09/09/25 08:04 36.9 C 09/09/25 08:00 104/61 09/09/25 08:00 104/61 09/09/25 08:00 104/61 09/09/25 08:00 55 L 17 98 09/09/25 07:33 64 24 98 09/09/25 07:33 135/58 L 09/09/25 07:33 135/58 L 09/09/25 07:33 135/58 L 09/09/25 07:33 135/58 L 09/09/25 07:30 58 L 17 100 09/09/25 07:00 125/53 L 09/09/25 07:00 125/53 L 09/09/25 07:00 59 L 21 99 09/09/25 06:00 119/50 L 09/09/25 06:00 119/50 L 09/09/25 06:00 119/50 L 09/09/25 06:00 119/50 L 09/09/25 06:00 119/50 L 09/09/25 06:00 119/50 L 09/09/25 06:00 119/50 L 09/09/25 06:00 119/50 L 09/09/25 06:00 119/50 L 09/09/25 06:00 57 L 17 97 09/09/25 05:45 53 L 13 96 09/09/25 05:30 64 16 98 09/09/25 05:15 56 L 14 94 09/09/25 05:00 103/54 L 09/09/25 05:00 103/54 L 09/09/25 05:00 103/54 L 09/09/25 05:00 103/54 L 09/09/25 05:00 103/54 L 09/09/25 05:00 103/54 L 09/09/25 05:00 103/54 L 09/09/25 05:00 103/54 L 09/09/25 05:00 103/54 L 09/09/25 05:00 59 L 15 94 09/09/25 04:45 60 17 97 09/09/25 04:30 59 L 14 96 09/09/25 04:15 59 L 14 97 09/09/25 04:00 66 17 97 09/09/25 04:00 127/68 09/09/25 04:00 127/68 09/09/25 04:00 127/68 09/09/25 04:00 127/68 09/09/25 04:00 127/68 09/09/25 04:00 61 09/09/25 03:45 56 L 18 96 09/09/25 03:30 58 L 16 95 09/09/25 03:15 64 19 96 09/09/25 03:00 56 L 15 96 09/09/25 03:00 103/51 L 09/09/25 03:00 103/51 L 09/09/25 03:00 103/51 L 09/09/25 03:00 103/51 L 09/09/25 03:00 103/51 L 09/09/25 03:00 36.7 C 09/09/25 02:45 55 L 14 97 09/09/25 02:30 67 13 98 09/09/25 02:15 57 L 19 97 09/09/25 02:00 55 L 15 95 09/09/25 02:00 105/46 L 09/09/25 02:00 105/46 L 09/09/25 02:00 105/46 L 09/09/25 02:00 105/46 L 09/09/25 02:00 105/46 L 09/09/25 01:45 63 15 95 09/09/25 01:30 60 16 96 09/09/25 01:15 60 16 95 09/09/25 01:00 58 L 14 09/09/25 01:00 103/51 L 09/09/25 01:00 103/51 L 09/09/25 01:00 103/51 L 09/09/25 01:00 103/51 L 09/09/25 01:00 103/51 L 09/09/25 00:45 63 10 L 97 09/09/25 00:30 61 19 92 09/09/25 00:15 61 12 95 09/09/25 00:00 63 17 94 09/09/25 00:00 106/50 L 09/09/25 00:00 106/50 L 09/09/25 00:00 106/50 L 09/09/25 00:00 106/50 L 09/09/25 00:00 106/50 L 09/09/25 00:00 62 117/47 L 09/09/25 00:00 62 09/08/25 23:45 60 14 96 09/08/25 23:30 60 16 95 09/08/25 23:15 63 13 96 09/08/25 23:02 36.5 C 09/08/25 23:00 65 18 95 09/08/25 23:00 101/51 L 09/08/25 23:00 101/51 L 09/08/25 23:00 101/51 L 09/08/25 23:00 101/51 L 09/08/25 23:00 101/51 L 09/08/25 22:45 64 15 95 09/08/25 22:30 65 16 96 O2 Del Method 09/09/25 10:00 Room Air 09/09/25 10:00 09/09/25 10:00 09/09/25 10:00 09/09/25 10:00 09/09/25 10:00 09/09/25 09:41 09/09/25 09:31 09/09/25 09:31 09/09/25 09:31 09/09/25 09:31 09/09/25 09:31 09/09/25 09:30 09/09/25 09:00 09/09/25 09:00 09/09/25 09:00 09/09/25 09:00 09/09/25 09:00 09/09/25 09:00 Room Air 09/09/25 08:30 09/09/25 08:30 09/09/25 08:30 09/09/25 08:04 09/09/25 08:00 09/09/25 08:00 09/09/25 08:00 09/09/25 08:00 Room Air 09/09/25 07:33 09/09/25 07:33 09/09/25 07:33 09/09/25 07:33 09/09/25 07:33 09/09/25 07:30 09/09/25 07:00 09/09/25 07:00 09/09/25 07:00 Room Air 09/09/25 06:00 09/09/25 06:00 09/09/25 06:00 09/09/25 06:00 09/09/25 06:00 09/09/25 06:00 09/09/25 06:00 09/09/25 06:00 09/09/25 06:00 09/09/25 06:00 09/09/25 05:45 09/09/25 05:30 09/09/25 05:15 09/09/25 05:00 09/09/25 05:00 09/09/25 05:00 09/09/25 05:00 09/09/25 05:00 09/09/25 05:00 09/09/25 05:00 09/09/25 05:00 09/09/25 05:00 09/09/25 05:00 09/09/25 04:45 09/09/25 04:30 09/09/25 04:15 09/09/25 04:00 09/09/25 04:00 09/09/25 04:00 09/09/25 04:00 09/09/25 04:00 09/09/25 04:00 09/09/25 04:00 09/09/25 03:45 09/09/25 03:30 09/09/25 03:15 09/09/25 03:00 09/09/25 03:00 09/09/25 03:00 09/09/25 03:00 09/09/25 03:00 09/09/25 03:00 09/09/25 03:00 09/09/25 02:45 09/09/25 02:30 09/09/25 02:15 09/09/25 02:00 09/09/25 02:00 09/09/25 02:00 09/09/25 02:00 09/09/25 02:00 09/09/25 02:00 09/09/25 01:45 09/09/25 01:30 09/09/25 01:15 09/09/25 01:00 09/09/25 01:00 09/09/25 01:00 09/09/25 01:00 09/09/25 01:00 09/09/25 01:00 09/09/25 00:45 09/09/25 00:30 09/09/25 00:15 09/09/25 00:00 09/09/25 00:00 09/09/25 00:00 09/09/25 00:00 09/09/25 00:00 09/09/25 00:00 09/09/25 00:00 09/09/25 00:00 09/08/25 23:45 09/08/25 23:30 09/08/25 23:15 09/08/25 23:02 09/08/25 23:00 09/08/25 23:00 09/08/25 23:00 09/08/25 23:00 09/08/25 23:00 09/08/25 23:00 09/08/25 22:45 09/08/25 22:30 Critical Care Results & Data Vital Signs (Past 12 Hours) Vital Signs Temp Pulse Pulse Resp BP BP Pulse Ox 09/09/25 10:00 62 20 100 09/09/25 10:00 115/55 L 09/09/25 10:00 115/55 L 09/09/25 10:00 115/55 L 09/09/25 10:00 115/55 L 09/09/25 10:00 115/55 L 09/09/25 09:41 36.9 C 65 17 128/56 L 98 09/09/25 09:31 128/56 L 09/09/25 09:31 128/56 L 09/09/25 09:31 128/56 L 09/09/25 09:31 128/56 L 09/09/25 09:31 128/56 L 09/09/25 09:30 58 L 18 97 09/09/25 09:00 116/65 09/09/25 09:00 116/65 09/09/25 09:00 116/65 09/09/25 09:00 116/65 09/09/25 09:00 116/65 09/09/25 09:00 66 18 99 09/09/25 08:30 59 L 22 100 12/12/25 08:30 106/55 L 09/09/25 08:30 106/55 L 09/09/25 08:04 36.9 C 09/09/25 08:00 104/61 09/09/25 08:00 104/61 09/09/25 08:00 104/61 09/09/25 08:00 55 L 17 98 09/09/25 07:33 64 24 98 09/09/25 07:33 135/58 L 09/09/25 07:33 135/58 L 09/09/25 07:33 135/58 L 09/09/25 07:33 135/58 L 09/09/25 07:30 58 L 17 100 09/09/25 07:00 125/53 L 09/09/25 07:00 125/53 L 09/09/25 07:00 59 L 21 99 09/09/25 06:00 119/50 L 09/09/25 06:00 119/50 L 09/09/25 06:00 119/50 L 09/09/25 06:00 119/50 L 09/09/25 06:00 119/50 L 09/09/25 06:00 119/50 L 09/09/25 06:00 119/50 L 09/09/25 06:00 119/50 L 09/09/25 06:00 119/50 L 09/09/25 06:00 57 L 17 97 09/09/25 05:45 53 L 13 96 09/09/25 05:30 64 16 98 09/09/25 05:15 56 L 14 94 09/09/25 05:00 103/54 L 09/09/25 05:00 103/54 L 09/09/25 05:00 103/54 L 09/09/25 05:00 103/54 L 09/09/25 05:00 103/54 L 09/09/25 05:00 103/54 L 09/09/25 05:00 103/54 L 09/09/25 05:00 103/54 L 09/09/25 05:00 103/54 L 09/09/25 05:00 59 L 15 94 09/09/25 04:45 60 17 97 09/09/25 04:30 59 L 14 96 09/09/25 04:15 59 L 14 97 09/09/25 04:00 66 17 97 09/09/25 04:00 127/68 09/09/25 04:00 127/68 09/09/25 04:00 127/68 09/09/25 04:00 127/68 09/09/25 04:00 127/68 09/09/25 04:00 61 09/09/25 03:45 56 L 18 96 09/09/25 03:30 58 L 16 95 09/09/25 03:15 64 19 96 09/09/25 03:00 56 L 15 96 09/09/25 03:00 103/51 L 09/09/25 03:00 103/51 L 09/09/25 03:00 103/51 L 09/09/25 03:00 103/51 L 09/09/25 03:00 103/51 L 09/09/25 03:00 36.7 C 09/09/25 02:45 55 L 14 97 09/09/25 02:30 67 13 98 09/09/25 02:15 57 L 19 97 09/09/25 02:00 55 L 15 95 09/09/25 02:00 105/46 L 09/09/25 02:00 105/46 L 09/09/25 02:00 105/46 L 09/09/25 02:00 105/46 L 09/09/25 02:00 105/46 L 09/09/25 01:45 63 15 95 09/09/25 01:30 60 16 96 09/09/25 01:15 60 16 95 09/09/25 01:00 58 L 14 09/09/25 01:00 103/51 L 09/09/25 01:00 103/51 L 09/09/25 01:00 103/51 L 09/09/25 01:00 103/51 L 09/09/25 01:00 103/51 L 09/09/25 00:45 63 10 L 97 09/09/25 00:30 61 19 92 09/09/25 00:15 61 12 95 09/09/25 00:00 63 17 94 09/09/25 00:00 106/50 L 09/09/25 00:00 106/50 L 09/09/25 00:00 106/50 L 09/09/25 00:00 106/50 L 09/09/25 00:00 106/50 L 09/09/25 00:00 62 117/47 L 09/09/25 00:00 62 09/08/25 23:45 60 14 96 09/08/25 23:30 60 16 95 09/08/25 23:15 63 13 96 09/08/25 23:02 36.5 C 09/08/25 23:00 65 18 95 09/08/25 23:00 101/51 L 09/08/25 23:00 101/51 L 09/08/25 23:00 101/51 L 09/08/25 23:00 101/51 L 09/08/25 23:00 101/51 L 09/08/25 22:45 64 15 95 O2 Del Method 09/09/25 10:00 Room Air 09/09/25 10:00 09/09/25 10:00 09/09/25 10:00 09/09/25 10:00 09/09/25 10:00 09/09/25 09:41 09/09/25 09:31 09/09/25 09:31 09/09/25 09:31 09/09/25 09:31 09/09/25 09:31 09/09/25 09:30 09/09/25 09:00 09/09/25 09:00 09/09/25 09:00 09/09/25 09:00 09/09/25 09:00 09/09/25 09:00 Room Air 09/09/25 08:30 09/09/25 08:30 09/09/25 08:30 09/09/25 08:04 09/09/25 08:00 09/09/25 08:00 09/09/25 08:00 09/09/25 08:00 Room Air 09/09/25 07:33 09/09/25 07:33 09/09/25 07:33 09/09/25 07:33 09/09/25 07:33 09/09/25 07:30 09/09/25 07:00 09/09/25 07:00 09/09/25 07:00 Room Air 09/09/25 06:00 09/09/25 06:00 09/09/25 06:00 09/09/25 06:00 09/09/25 06:00 09/09/25 06:00 09/09/25 06:00 09/09/25 06:00 09/09/25 06:00 09/09/25 06:00 09/09/25 05:45 09/09/25 05:30 09/09/25 05:15 09/09/25 05:00 09/09/25 05:00 09/09/25 05:00 09/09/25 05:00 09/09/25 05:00 09/09/25 05:00 09/09/25 05:00 09/09/25 05:00 09/09/25 05:00 09/09/25 05:00 09/09/25 04:45 09/09/25 04:30 09/09/25 04:15 09/09/25 04:00 09/09/25 04:00 09/09/25 04:00 09/09/25 04:00 09/09/25 04:00 09/09/25 04:00 09/09/25 04:00 09/09/25 03:45 09/09/25 03:30 09/09/25 03:15 09/09/25 03:00 09/09/25 03:00 09/09/25 03:00 09/09/25 03:00 09/09/25 03:00 09/09/25 03:00 09/09/25 03:00 09/09/25 02:45 09/09/25 02:30 09/09/25 02:15 09/09/25 02:00 09/09/25 02:00 09/09/25 02:00 09/09/25 02:00 09/09/25 02:00 09/09/25 02:00 09/09/25 01:45 09/09/25 01:30 09/09/25 01:15 09/09/25 01:00 09/09/25 01:00 09/09/25 01:00 09/09/25 01:00 09/09/25 01:00 09/09/25 01:00 09/09/25 00:45 09/09/25 00:30 09/09/25 00:15 09/09/25 00:00 09/09/25 00:00 09/09/25 00:00 09/09/25 00:00 09/09/25 00:00 09/09/25 00:00 09/09/25 00:00 09/09/25 00:00 09/08/25 23:45 09/08/25 23:30 09/08/25 23:15 09/08/25 23:02 09/08/25 23:00 09/08/25 23:00 09/08/25 23:00 09/08/25 23:00 09/08/25 23:00 09/08/25 23:00 09/08/25 22:45 Lab & Micro Results (Past 24 Hours) RBC 3.56 M/uL (4.70-6.10) L 09/09/25 WBC 11.86 K/ul (4.8-10.8) H 09/09/25 Hgb 10.2 g/dL (14.0-18.0) L 09/09/25 Hct 31.2 % (42.0-52.0) L 09/09/25 MCV 87.6 fL (80.0-100.0) 09/09/25 MCH 28.7 pg (25.0-34.0) 09/09/25 MCHC 32.7 g/dL (32.0-36.0) 09/09/25 RDW Standard Deviation 47.9 fL (36.4-46.3) H 09/09/25 RDW Coefficient of Variation 14.7 % (11.5-14.5) H 09/09/25 Plt Count 241 K/uL (130-400) 09/09/25 MPV 9.4 fL (9.4-12.4) 09/09/25 Neutrophils (%) (Auto) 55.5 % 09/09/25 Lymphocytes (%) (Auto) 36.2 % 09/09/25 Monocytes # (Auto) 0.77 K/uL (0.11-0.59) H 09/09/25 Eosinophils # (Auto) 0.13 K/uL (0.00-0.50) 09/09/25 Immature Granulocyte % (Auto) 0.4 % 09/09/25 Neutrophils # (Auto) 6.58 K/uL (1.40-6.50) H 09/09/25 Lymphocytes # (Auto) 4.29 K/uL (1.20-3.40) H 09/09/25 Monocytes # (Auto) 0.77 K/uL (0.11-0.59) H 09/09/25 Eosinophils # (Auto) 0.13 K/uL (0.00-0.50) 09/09/25 Basophils # (Auto) 0.04 K/uL (0.00-0.20) 09/09/25 Immature Granulocyte # (Auto) 0.05 K/uL (0.01-0.20) 5 Na 138 mmol/L (136-145) 09/09/25 K 3.9 mmol/L (3.5-5.1) 09/09/25 Cl 107 mmol/L (98-107) 09/09/25 CO2 24 mmol/L (21-32) 09/09/25 Anion Gap 7 (3-11) 09/09/25 BUN 16 mg/dl (6-23) 09/09/25 Creatinine 0.83 mg/dl (0.6-1.4) 09/09/25 BUN/Creatinine Ratio 19.3 (10-20) 09/09/25 Glu 100 mg/dl (70-99(Fasting)) H 09/09/25 Ca 8.3 mg/dl (8.6-10.3) L 09/09/25 Calcium Level 8.3 mg/dl (8.6-10.3) L 09/09/25 03:56 I & O Totals 24 Hours 09/08/25 09/09/25 09/10/25 06:59 06:59 06:59 Intake Total 2150 / 2150 120 / 120 Output Total 1455 / 1455 100 / 100 Balance 695 / 695 Cumulative 08/08/25 13:50 thru 09/09/25 09:41 Intake Total 2270 Output Total 1555 Balance 715 RT Ventilator Mngmt (Last Documented) Ventilator Ordered Settings Respiratory Rate 20 09/09/25 10:00 Ventilator - PT Measurements Respiratory Rate 20 Coding Level of Care Code 06692 SUB INP/OBS CARE 2/35MIN Diagnoses S/P carotid endarterectomy Z98.890 Dyslipidemia E78.5 Aortic valve sclerosis I35.8
[2025-09-09 11:12] VITALS: BP 145/60; PULSE 56; RESP 17
--- NOTE | 2025-09-09 13:53 | Discharge Summary ---
Date of Service September 09, 2025 Admission HPI Per Admitting Provider Please see my note from 08/08/25: Asked to evaluate this 69-year-old gentleman with an incidentally discovered left internal carotid artery stenosis. 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 Over the last month or so he has had progressive vision loss in the left eye. A CT arteriogram of the neck demonstrated a high-grade (greater than 80%) calcified stenosis of the left internal carotid artery at its origin and on this basis he is being referred for further evaluation. He really does not describe any intermittent loss of vision, it has really been very progressive and chronic. He has no history of a prior stroke or transient ischemic attack. He is followed by our cardiology team for aortic and mitral valve disease. He climbs stairs with ease and does not have any history of myocardial infarction. 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 He is a non-smoker. His is a nurse. No significant change in his history from that time. Incidentally discovered high grade calcified left internal carotid artery stenosis. Remains asymptomatic. No interval history of fever, cough, GI symptoms or neurologic issues. Plan for left carotid endarterectomy today. Admission Exam Per Admitting Provider He has no carotid bruits. His lungs are clear and his heart has a regular rate and rhythm. Abdomen is soft and nontender. Radial femoral and pedal pulses are strong and equal bilaterally. Principal Diagnosis left internal carotid artery stenosis Discharge Exam Awake, alert, comfortable. No neurologic deficits. Tongue midline Incision clean, dry. Minimal LUIS output. Discharge Data Allergies Allergy/AdvReac Type Severity Reaction Status Date / Time No Known Allergies Allergy Verified 09/08/25 05:52 Consultations 09/08/25 11:15 Consult Public Address System Mechanic Routine Procedures Performed Operation Date: 09/08/25 07:15 Actual Procedures p Left Carotid Endarterectomy(Left) - Toby Maurice MD Ordered Studies 09/08/25 08:02 EV angio carotid cerv LT Routine Hospital Course (1) S/P carotid endarterectomy: doing well s/p L CEA. LUIS drain removed. Plan - remove Alberto, arterial line. Advance diet. If able to urinate and tolerate po intake then can be discharged later today. Followup in 1 month (we will arrange). Discharge plans reviewed. Plan Patient seen around 9am and had eaten breakfast and was going to use urinal. He is feeling well. He will follow up in 1 month with carotid duplex. He was instructed to call/return sooner/go to ER with any concerning signs/symptoms, to include severe left sided headache, unilateral extremity weakness/numbness, facial drooping, slurred speech, incision problems such as bleeding, drainage, redness. Total Time Total Time Spent Total Time Spent (In Minutes): 25 minutes Discharge Plan Discharge Items Patient Disposition: Home - Self-Care Reason For Visit: Stenosis of Left Internal Carotid Artery Discharge Diagnosis: left carotid stenosis, s/p left carotid endarterectomy Condition on Discharge: Good Activity: Per Instructions section Activity Comment: light activity for 2 weeks Lifting Comment: Do not lift anything heavier than a gallon of milk for 2 weeks Bathing Comment: You may shower on Monday 09/10. Exercise Comment: No heavy exercise for 2 weeks Driving/Machine Use: No driving for 2 weeks Non-emergency contact: Surgeon Call non-emergency contact if: you have a fever, your wound has increased r edness, your wound has increased drainage and your wound pain has increased Follow-up/Referrals: Azalea Bridges DO [Primary Care Provider] - 09/16/25 8:30 am (09/16/25 at 8:30 with Saida Melchor PA-C) Diet: Regular Ambulatory Orders: US carotid doppler BI (Routine) Timeframe: 1 Month Facility: [facility] Practices - Location: [facility] [place] Ordered By: Neli Ulloa Attending Provider Instructions: You may shower on Monday 09/10. Do not rub incision, pat incision dry You have skin glue (purplish in color) over your skin incision. This will flake off on its own in about 2 weeks. You may resume your normal medications. No driving for 2 weeks. Do not lift anything heavier than a gallon of milk for 2 weeks. Follow up with Dr. Maurice/Neli Silva in 4 weeks with an ultrasound of your carotid at the same time. We will reach out to you to get this scheduled. Please call/return sooner/go to ED if you have severe left sided headache, signs/symptoms of a stroke such as unilateral extremity weakness/numbness, difficulty speaking, slurred speech, face drooping Pending Studies at Discharge: No Stand-Alone Forms: [employer] [facility] [employer] [facility], Smoking Cessation Medications and DC Order Prescriptions: Continued acetaminophen 500 mg tablet 500 mg PO Q6H PRN (Reason: pain) Qty: 30 0RF Rx Instructions: 1-2 tablets PO Q6H PRN; hydrocortisone 2.5 % cream with perineal applicator 1 applic MI DAILY PRN (Reason: hemorrhoids) Qty: 30 1RF metoprolol tartrate 50 mg tablet 50 mg PO HS Qty: 90 3RF ondansetron 8 mg tablet,disintegrating 8 mg PO Q8H PRN (Reason: nausea and vomiting) Qty: 90 3RF levofloxacin 500 mg tablet 500 mg PO DAILY PRN (Reason: PROSTATE ISSUES PER PT) Qty: 90 1RF docusate sodium 100 mg capsule 100 mg PO QPM PRN (Reason: Constipation) rosuvastatin 10 mg tablet 10 mg PO QAM Qty: 90 3RF armodafinil [Nuvigil] 150 mg tablet 150 mg PO QAM PRN (Reason: NEEDED PER PT) Qty: 30 5RF tramadol 50 mg tablet 50 mg PO BID PRN (Reason: pain) Qty: 60 5RF Hold Instructions: Resume on 07/24/24. magnesium oxide 500 mg Tablet 500 mg PO HS cholecalciferol (vitamin D3) [Vitamin D3] 125 mcg (5,000 unit) Tablet 125 mcg PO DAILY multivitamin Tablet 1 tab PO DAILY amoxicillin 500 mg capsule 2,000 mg PO UD PRN (Reason: dental care) Rx Instructions: 2,000 mg PO prior to dental care; aspirin 325 mg tablet 325 mg PO QAM amlodipine 5 mg tablet 5 mg PO QAM tamsulosin 0.4 mg capsule 0.8 mg PO QPM cyanocobalamin (vitamin B-12) 1,000 mcg tablet, sublingual 5,000 mcg SL DAILY finasteride 5 mg tablet 5 mg PO QAM fenofibrate 160 mg tablet 160 mg PO Q2D ascorbic acid (vitamin C) 500 mg capsule 2,000 mg PO DAILY lisinopril 10 mg tablet See Rx Instructions PO UD Rx Instructions: orally use as directed; 20 mg PO 1 tablet in am and 1 tablets in pm duloxetine 30 mg capsule,delayed release(DR/EC) 40 mg PO QAM Discharge Orders: Discharge Order (Routine); Ordered 09/09/25 Ordered By: Neli Silva Admission Data Admit Date/Time: 09/08/25 07:00 Attending Provider: Toby Maurice Admit Provider: Neli Silva Primary Care Provider: Azalea Bridges Other Providers: Braxton Fam; Mark Anthony Tavarez; Doug Santiago; Viri Bhakta; Francois Denise; Edwina Vazquez; Prosper Aaron; Guillermo Carrasco; Jamaal Donaldson; Diane Macias; Gracie Velasquez; Ortiz Bryan; Luann Caballero Other Interventions: Discharge Summary Assessment (RN) Last Done: 09/09/25 09:41
== END 2025-09-09 11:12 | disposition home or self-care (01) | DRG 38 ==
LOC: ASU 05:44 → 1E 07:00